=== PATIENT | female | born 1940 | race Caucasian/White ===

== ENCOUNTER 2017-06-14 06:59 | Inpatient (IN) | payer MEDICARE ==
[~2017-06-14] VITALS: Ht 165.1 cm; Wt 73.5 kg
[~2017-06-14 06:59] MED LIST: ASPI-515 PO; ASPI325T17 PO; DOCU-131 PO; FENO54TA17 PO; GABA300C10 PO; LISI40TA PO; OXYC5CAP2 PO; PRAV40TA2 PO; TRAM50TA2 PO
[2017-06-14] MEDS ORDERED: ONDANSETRON 2MG/ML, 2ML ONE (07:48)
[2017-06-14] MEDS ORDERED: ONDANSETRON 2MG/ML, 2ML IVPush ONE (08:00)
[2017-06-14] MEDS ORDERED: SODIUM CHLORIDE 0.9% 1,000 ML IV ONE (08:00)
[2017-06-14] MEDS ORDERED: SODIUM CHLORIDE FLUSH 10ML SYR IVF ONE (08:00)
[2017-06-14] MEDS ORDERED: SODIUM CHLORIDE 0.9% 1,000ML IVBOLUS ONE (08:00)
[2017-06-14 08:33] LABS: ASPARTATE AMINO TRANSFERASE 26 U/L (15-37); BLOOD UREA NITROGEN 27 mg/dL (7-18)
[2017-06-14 08:42] LABS: HEMATOCRIT 38.4 % (34.6-47.8); HEMOGLOBIN 13.1 g/dL (11.7-16.4); WHITE BLOOD COUNT 11.1 x10^3/uL (3.4-10)
[2017-06-14] MEDS ORDERED: OMNIPAQUE 350 MG/ML, 100ML BOTTLE ONE (09:08)
[2017-06-14] MEDS ORDERED: CEFTRIAXONE PMX 1GM/50ML 50 ML ONE (09:46)
[2017-06-14] MEDS ORDERED: METRONIDAZOLE PMX 500MG/100ML 100 ML IV ONE (10:00)
[2017-06-14] MEDS ORDERED: CEFTRIAXONE PMX 1GM/50ML 50 ML IV ONE (10:00)
[2017-06-14] MEDS ORDERED: ENALAPRILAT 1.25 MG/ML, 2ML IVPush PRN (13:00)
[2017-06-14] MEDS ORDERED: METRONIDAZOLE PMX 500MG/100ML 100 ML IV SCH (13:00)
[2017-06-14] MEDS ORDERED: MORPHINE SULFATE 4 MG/ML, 1ML IVPush PRN (13:00)
[2017-06-14] MEDS ORDERED: ONDANSETRON 2MG/ML, 2ML IVPush PRN (13:00)
[2017-06-14] MEDS ORDERED: PROMETHAZINE 25 MG/ML, 1ML IM PRN (13:00)
[2017-06-14] MEDS ORDERED: LABETALOL 5MG/ML, 20ML IVPush PRN (13:00)
[2017-06-14] MEDS ORDERED: METOCLOPRAMIDE 5 MG/ML, 2ML IVPush PRN (13:00)
[2017-06-14] MEDS: SODIUM CHLORIDE 0.9% 1,000 ML IV SCH ×2 (13:06→20:35)
[2017-06-14 13:25] LABS: HEMATOCRIT 40.8 % (34.6-47.8); HEMOGLOBIN 13.8 g/dL (11.7-16.4)
[2017-06-14 16:32] VITALS: BP 110/66
[2017-06-14 18:16] LABS: HEMATOCRIT 38.2 % (34.6-47.8); HEMOGLOBIN 12.8 g/dL (11.7-16.4)
[2017-06-14 20:15] VITALS: BP 107/60
[2017-06-14] MEDS: METRONIDAZOLE PMX 500MG/100ML 100 ML IV SCH (20:36)
[2017-06-15 01:05] LABS: HEMATOCRIT 35.2 % (34.6-47.8); HEMOGLOBIN 12.1 g/dL (11.7-16.4)
[2017-06-15 03:14] VITALS: BP 118/67
[2017-06-15] MEDS: SODIUM CHLORIDE 0.9% 1,000 ML IV SCH ×3 (04:20→21:36)
[2017-06-15] MEDS: METRONIDAZOLE PMX 500MG/100ML 100 ML IV SCH (05:35)
[2017-06-15 06:15] LABS: HEMOGLOBIN 12.1 g/dL (11.7-16.4); WHITE BLOOD COUNT 11.8 x10^3/uL (3.4-10)
[2017-06-15 06:25] LABS: ASPARTATE AMINO TRANSFERASE 18 U/L (15-37); BLOOD UREA NITROGEN 18 mg/dL (7-18)
[2017-06-15 07:34] VITALS: BP 125/62
[2017-06-15] MEDS ORDERED: CEFTRIAXONE PMX 1GM/50ML 50 ML IV SCH (10:00)
[2017-06-15 12:55] VITALS: BP 144/69
[2017-06-15 14:09] LABS: HEMATOCRIT 35.6 % (34.6-47.8); HEMOGLOBIN 11.9 g/dL (11.7-16.4)
[2017-06-15 20:01] LABS: HEMOGLOBIN 12.3 g/dL (11.7-16.4)
[2017-06-15 20:17] VITALS: BP 121/69
[2017-06-15] MEDS: CIPROFLOXACIN 500 MG TABLET PO SCH (20:49)
[2017-06-15] MEDS ORDERED: LOPERAMIDE 2 MG CAPSULE PO ONE (21:00)
[2017-06-16 01:03] LABS: HEMATOCRIT 35.8 % (34.6-47.8); HEMOGLOBIN 11.8 g/dL (11.7-16.4)
[2017-06-16 03:08] VITALS: BP 147/67
[2017-06-16] MEDS: SODIUM CHLORIDE 0.9% 1,000 ML IV SCH ×3 (06:07→17:00)
[2017-06-16 06:57] VITALS: BP 132/69
[2017-06-16 07:41] LABS: HEMATOCRIT 38.9 % (34.6-47.8); WHITE BLOOD COUNT 8.4 x10^3/uL (3.4-10)
[2017-06-16 07:49] LABS: BLOOD UREA NITROGEN 9 mg/dL (7-18)
[2017-06-16] MEDS: CIPROFLOXACIN 500 MG TABLET PO SCH ×2 (08:25→18:04)
[2017-06-16 12:46] LABS: HEMATOCRIT 36.1 % (34.6-47.8); HEMOGLOBIN 12.2 g/dL (11.7-16.4)
[2017-06-16 13:01] VITALS: BP 133/75
[2017-06-16] MEDS ORDERED: SENN1TAB7 PO (16:45)
[2017-06-16] MEDS ORDERED: CIPR500T87 PO (16:45)
[2017-06-16] MEDS ORDERED: POTASSIUM CHLORIDE 20 MEQ TAB.ER.PRT PO ONE (17:00)
== END 2017-06-16 18:00 | disposition home or self-care (01) | DRG 393 ==
LOC: ED 09:12 → EDIP 09:33 → UNDOADMIN 09:53 → 3NW 10:23
PROVIDERS: ADMIT Internal Medicine; ATTEND Internal Medicine
DX: K55.039 Acute (reversible) ischemia of large intestine, extent unspecified (principal); N17.0 Acute kidney failure with tubular necrosis; K92.1 Melena; A09 Infectious gastroenteritis and colitis, unspecified; D69.6 Thrombocytopenia, unspecified; Z96.643 Presence of artificial hip joint, bilateral; E78.5 Hyperlipidemia, unspecified; I10 Essential (primary) hypertension; K21.9 Gastro-esophageal reflux disease without esophagitis; K59.00 Constipation, unspecified; Z80.3 Family history of malignant neoplasm of breast; Z82.49 Family history of ischemic heart disease and other diseases of the circulatory system; Z85.42 Personal history of malignant neoplasm of other parts of uterus; Z90.710 Acquired absence of both cervix and uterus; Z92.3 Personal history of irradiation; I49.9 Cardiac arrhythmia, unspecified
CPT/HCPCS: 36415; 74177; 80048; 80053; 83735; 84100; 85014; 85018; 85025; 85610; 86850; 86900; 87324; 96361; 96374; 96375; J0696; J2405; Q9967; J7030

== ENCOUNTER 2018-02-24 16:39 | Inpatient (IN) | payer MEDICARE ==
[~2018-02-24] VITALS: Ht 165.1 cm; Wt 59.5 kg
[~2018-02-24 16:39] MED LIST changes: +ACET325T14 PO; +ATOR-2 PO; +ATOR40TA PO; +CIPR500T87 PO; +FENO67CA PO; +LOSA100T6 PO; +SENN1TAB7 PO
[2018-02-24] MEDS ORDERED: SODIUM CHLORIDE FLUSH 10ML SYR IVF ONE ×2 (17:00→18:00)
[2018-02-24] MEDS ORDERED: FAMOTIDINE 20 MG/2 ML IVP ONE (18:00)
[2018-02-24] MEDS ORDERED: MORPHINE SULFATE 4 MG/ML, 1ML IVPush PRN (18:00)
[2018-02-24] MEDS ORDERED: ONDANSETRON ODT 4 MG PO ONE (18:00)
[2018-02-24] MEDS ORDERED: ONDANSETRON ODT 4 MG ONE (18:03)
[2018-02-24] MEDS ORDERED: MORPHINE SULFATE 4 MG/ML, 1ML ONE ×2 (18:04→22:00)
[2018-02-24] MEDS ORDERED: FAMOTIDINE 20 MG/2 ML ONE (18:04)
[2018-02-24 18:13] LABS: BASOPHILS # (AUTO) 0.04 x10^3/uL (0-0.1); BASOPHILS % (AUTO) 0 % (0-1); EOSINOPHILS # (AUTO) 0.18 x10^3/uL (0-0.4); EOSINOPHILS % (AUTO) 2 % (1-7); LYMPHOCYTES # (AUTO) 0.89 x10^3/uL (1-3.4); LYMPHOCYTES % (AUTO) 7 % (22-44); MD NO; MEAN CORPUSCULAR HEMOGLOBIN 30.1 pg (27.0-34.8); MEAN CORPUSCULAR HGB CONC 33.9 g/dL (32.4-35.8); MEAN CORPUSCULAR VOLUME 88.6 fL (80-100); MEAN PLATELET VOLUME 11.6 fL (7.4-10.4); MONOCYTES # (AUTO) 0.72 x10^3/uL (0.2-0.8); MONOCYTES % (AUTO) 6 % (2-9); NEUTROPHILS # (AUTO) 10.49 x10^3/uL (1.8-6.8); NEUTROPHILS % (AUTO) 85 % (42-75); PLATELET COUNT 131 x10^3/uL (130-400); RED BLOOD COUNT 4.97 x10^6/uL (3.82-5.3); RED CELL DISTRIBUTION WIDTH 13.9 % (9.6-15.2)
[2018-02-24 18:17] LABS: ALANINE AMINOTRANSFERASE 20 U/L (12-78); ALBUMIN 4.1 g/dL (3.4-5.0); ANION GAP 10 mmol/L (5-15); CALCIUM 9.9 mg/dL (8.5-10.1); CHLORIDE 106 mmol/L (98-107); CREATININE 1.11 mg/dL (0.55-1.02)
[2018-02-24 18:20] LABS: ALKALINE PHOSPHATASE 51 U/L (45-117); BILIRUBIN,TOTAL 0.6 mg/dL (0.2-1.0); TOTAL PROTEIN 7.4 g/dL (6.4-8.2)
[2018-02-24 18:24] LABS: TROPONIN I < 0.015 ng/mL (0.000-0.045)
[2018-02-24] MEDS ORDERED: OMNIPAQUE 350 MG/ML, 100ML BOTTLE ONE (19:03)
[2018-02-24] MEDS: D5%-0.45% NACL 1,000 ML IV SCH (20:36)
[2018-02-24 21:00] VITALS: BP 147/65
[2018-02-24] MEDS ORDERED: ENALAPRILAT 1.25 MG/ML, 2ML IVPush PRN (21:00)
[2018-02-24] MEDS ORDERED: ACETAMINOPHEN 325 MG TABLET PO PRN (21:00)
[2018-02-24] MEDS ORDERED: ATORVASTATIN 40 MG TABLET PO SCH (21:00)
[2018-02-24] MEDS ORDERED: ONDANSETRON 2MG/ML, 2ML IVPush PRN (21:00)
[2018-02-24] MEDS ORDERED: LABETALOL 5MG/ML, 20ML IVPush PRN (21:00)
[2018-02-24] MEDS: FAMOTIDINE 20 MG TABLET PO SCH (21:17)
[2018-02-24] MEDS ORDERED: morphine SULFATE 10 MG/ML, 1ML IVPush PRN (22:00)
[2018-02-25 04:11] VITALS: BP 110/64
[2018-02-25] MEDS: D5%-0.45% NACL 1,000 ML IV SCH ×2 (04:36→12:07)
[2018-02-25 04:40] LABS: BASOPHILS # (AUTO) 0.03 x10^3/uL (0-0.1); BASOPHILS % (AUTO) 1 % (0-1); EOSINOPHILS # (AUTO) 0.29 x10^3/uL (0-0.4); EOSINOPHILS % (AUTO) 7 % (1-7); LYMPHOCYTES # (AUTO) 0.82 x10^3/uL (1-3.4); LYMPHOCYTES % (AUTO) 19 % (22-44); MD NO; MEAN CORPUSCULAR HEMOGLOBIN 30.5 pg (27.0-34.8); MEAN CORPUSCULAR HGB CONC 34.6 g/dL (32.4-35.8); MEAN CORPUSCULAR VOLUME 88.4 fL (80-100); MEAN PLATELET VOLUME 12.2 fL (7.4-10.4); MONOCYTES # (AUTO) 0.55 x10^3/uL (0.2-0.8); MONOCYTES % (AUTO) 13 % (2-9); NEUTROPHILS # (AUTO) 2.55 x10^3/uL (1.8-6.8); NEUTROPHILS % (AUTO) 60 % (42-75); PLATELET COUNT 105 x10^3/uL (130-400); RED BLOOD COUNT 4.03 x10^6/uL (3.82-5.3); RED CELL DISTRIBUTION WIDTH 14.2 % (9.6-15.2)
[2018-02-25 04:47] LABS: ALBUMIN 3.1 g/dL (3.4-5.0); ANION GAP 7 mmol/L (5-15); CALCIUM 8.1 mg/dL (8.5-10.1); CHLORIDE 109 mmol/L (98-107)
[2018-02-25 04:51] LABS: ALANINE AMINOTRANSFERASE 17 U/L (12-78); ALKALINE PHOSPHATASE 39 U/L (45-117); BILIRUBIN,TOTAL 0.6 mg/dL (0.2-1.0); CHOLESTEROL, TOTAL 171 mg/dL (140-239); CREATININE 0.91 mg/dL (0.55-1.02); HDL CHOL % 25 % (28-40); HDL CHOLESTEROL (DIRECT) 43 mg/dL (40-60); LDL CHOLESTEROL,CALCULATED 101 mg/dL (54-169); LDL/HDL RATIO 2.3 (0.5-3.0); TOTAL PROTEIN 5.7 g/dL (6.4-8.2); TRIGLYCERIDES 136 mg/dL (50-200); VLDL CHOLESTEROL 27 mg/dL (0-25)
[2018-02-25 04:54] LABS: MICROSCOPIC NOT IND
[2018-02-25 04:58] LABS: CULTURE INDICATED? NO
[2018-02-25 07:42] VITALS: BP 114/54
[2018-02-25] MEDS: FAMOTIDINE 20 MG TABLET PO SCH (07:45)
[2018-02-25] MEDS ORDERED: FENOFIBRATE 54 MG TABLET PO SCH (09:00)
[2018-02-25] MEDS ORDERED: LOSARTAN 50MG TABLET PO SCH (09:00)
[2018-02-25 13:35] VITALS: BP 116/64
[2018-02-25] MEDS ORDERED: POLY17PO5 PO (15:34)
== END 2018-02-25 17:00 | disposition home or self-care (01) | DRG 389 ==
LOC: ED 18:08 → EDIP 19:40 → 3NW 20:10
PROVIDERS: ADMIT Emergency Medicine; ATTEND Emergency Medicine
DX: K56.51 Intestinal adhesions [bands], with partial obstruction (principal); N17.9 Acute kidney failure, unspecified; D72.829 Elevated white blood cell count, unspecified; E78.5 Hyperlipidemia, unspecified; Z88.8 Allergy status to other drugs, medicaments and biological substances; I10 Essential (primary) hypertension; Z80.3 Family history of malignant neoplasm of breast; Z80.52 Family history of malignant neoplasm of bladder; Z85.42 Personal history of malignant neoplasm of other parts of uterus; Z87.19 Personal history of other diseases of the digestive system; Z90.710 Acquired absence of both cervix and uterus; N28.9 Disorder of kidney and ureter, unspecified
CPT/HCPCS: 36415; 74177; 76700; 80053; 80061; 81003; 83605; 83690; 84484; 85025; 93005; 96374; 96375; Q0162; Q9967; J2270; S0028

== ENCOUNTER → 2018-07-22 | Outpatient (CLI) | payer MEDICARE ==
[~2018-07-22] MED LIST changes: -LOSA100T6 PO; +LOSA100T7 PO; +POLY17PO5 PO; -SENN1TAB7 PO; +SENN1TAB8 PO
== END | disposition home or self-care (01) ==
LOC: PETCFH 08:05
PROVIDERS: ATTEND Family Medicine
DX: R11.2 Nausea with vomiting, unspecified (principal)
CPT/HCPCS: 78226; A9537